=== PATIENT | female | born 1970 | race Caucasian/White ===

== ENCOUNTER 2024-07-10 06:18 | Inpatient (IN) | payer OTHER, MEDICAID ==
[2024-07-10] MEDS ORDERED: Ondansetron PF 4 MG/2 ML Vial ONE (07:14)
[2024-07-10] MEDS ORDERED: Rocuronium Bromide 10 MG/ML (10ML VIAL) ONE ×2 (07:14→10:57)
[2024-07-10] MEDS ORDERED: Dexamethasone 20 MG/5 ML VIAL ONE (07:14)
[2024-07-10] MEDS ORDERED: Lidocaine 1% PF 5 ML VIAL ONE (07:14)
[2024-07-10] MEDS ORDERED: PROPOFOL 20 ML ONE (07:15)
[2024-07-10] MEDS ORDERED: Midazolam HCl 2 mg/2 ml Vial ONE (07:15)
[2024-07-10] MEDS ORDERED: fentaNYL PF 100 MCG/2 ML SYRINGE ONE ×3 (07:15→10:52)
[2024-07-10] MEDS ORDERED: EPINEPHrine 1 MG/ML VIAL ONE (07:16)
[2024-07-10] MEDS ORDERED: Bupivacaine 0.25% HCL 30 ML VIAL ONE (07:16)
[2024-07-10] MEDS ORDERED: Scopolamine 1 mg/72 hour Patch ONE (07:27)
[2024-07-10] MEDS ORDERED: Enoxaparin 40 MG (0.4 mL) SYRINGE ONE (07:28)
[2024-07-10] MEDS ORDERED: cefOXitin 2 GM VIAL ONE ×2 (07:31→10:35)
[2024-07-10] MEDS ORDERED: Dextrose 5% in Water 1,000 ML IV PRN (07:56)
[2024-07-10] MEDS ORDERED: Dextrose 50% Abboject 50 ML SYRINGE SLOW IVP PRN (07:56)
[2024-07-10] MEDS ORDERED: Promethazine HCl 25 MG/ML VIAL IM PRN (07:56)
[2024-07-10] MEDS ORDERED: Glucagon 1 MG/ML KIT IM PRN (07:56)
[2024-07-10] MEDS ORDERED: traMADol HCl 50 MG TAB PO PRN (07:56)
[2024-07-10] MEDS ORDERED: diphenhydrAMINE 50 MG/ML VIAL IVP PRN (07:56)
[2024-07-10] MEDS ORDERED: Ipratropium/Albuterol 3 ML NEB NEB PRN (07:56)
[2024-07-10] MEDS ORDERED: Ondansetron PF 4 MG/2 ML Vial IVP PRN (07:56)
[2024-07-10] MEDS ORDERED: hydrALAZINE 20 MG/ML VIAL SLOW IVP PRN (07:56)
[2024-07-10] MEDS ORDERED: ePHEDrine Sulfate 50 MG/10 ML VIAL ONE (08:02)
[2024-07-10] MEDS ORDERED: PHENYLEPHRINE-NS 100 MCG/ML 10 ML SYRINGE ONE ×4 (08:03→10:52)
[2024-07-10] MEDS ORDERED: Rimegepant Sulfate [Nurtec Odt] 75 MG Tab.Rapdis PO PRN (08:15)
[2024-07-10] MEDS ORDERED: Indocyanine Green 25 MG/10 ML VIAL ONE (09:21)
[2024-07-10] MEDS ORDERED: Metoprolol Tartrate 5 MG (5 mL) VIAL ONE (10:50)
[2024-07-10] MEDS ORDERED: SUGAMMADEX SODIUM 200 MG/2 ML VIAL ONE ×2 (11:14→11:19)
[2024-07-10] MEDS: oxyCODONE 5 MG TAB PO PRN (15:40)
[2024-07-10] MEDS: D5 1/2 NS w/20 mEq KCL 1,000 ML IV SCH (15:42)
[2024-07-10] MEDS: Pantoprazole 40 MG VIAL IVP SCH (15:44)
[2024-07-10] MEDS: Ketorolac Tromethamine 30 MG (1 mL) VIAL IVP SCH (15:44)
[2024-07-10] MEDS: Acetaminophen 650 MG/20.3 ML UDCUP PO SCH (15:44)
[2024-07-10] MEDS: Enoxaparin 40 MG (0.4 mL) SYRINGE SC SCH (15:44)
[2024-07-10 17:37] VITALS: BMI 21.2
[2024-07-10] MEDS: Amitriptyline HCl 10 MG TAB PO SCH (20:16)
[2024-07-11 08:21] VITALS: TEMP 98.5
[2024-07-11 12:08] VITALS: BP 106/66
[2024-07-13] MEDS ORDERED: FLU (Fluarix Triv) TS24-25(6MOS UP)/PF 45 MCG/0.5 ML Syringe IM ONE (18:15)
== END 2024-07-11 15:24 | disposition home or self-care (01) | DRG 328 ==
LOC: SURG A 06:18
PROVIDERS: ADMIT Surgery; ATTEND Surgery
PROC: 0DB64ZZ Excision of Stomach, Percutaneous Endoscopic Approach (ICD-10-PCS; principal; 2024-07-10)
PROC: 0D844ZZ Division of Esophagogastric Junction, Percutaneous Endoscopic Approach (ICD-10-PCS; 2024-07-10)
PROC: 0D164ZA Bypass Stomach to Jejunum, Percutaneous Endoscopic Approach (ICD-10-PCS; 2024-07-10)
PROC: 0BQT4ZZ Repair Diaphragm, Percutaneous Endoscopic Approach (ICD-10-PCS; 2024-07-10)
PROC: 0DJ08ZZ Inspection of Upper Intestinal Tract, Via Natural or Artificial Opening Endoscopic (ICD-10-PCS; 2024-07-10)
DX: K21.9 Gastro-esophageal reflux disease without esophagitis (principal); R13.19 Other dysphagia; K22.0 Achalasia of cardia; K44.9 Diaphragmatic hernia without obstruction or gangrene; E66.01 Morbid (severe) obesity due to excess calories; Z98.84 Bariatric surgery status; Z88.8 Allergy status to other drugs, medicaments and biological substances; Z88.0 Allergy status to penicillin; I10 Essential (primary) hypertension; G47.33 Obstructive sleep apnea (adult) (pediatric); Z90.49 Acquired absence of other specified parts of digestive tract; Z90.710 Acquired absence of both cervix and uterus
CPT/HCPCS: A4314; J0171; J0665; J0694; J1100; J1650; J1885; J2250; J2405; J2470; J2704; J3480